=== PATIENT | female | born 1965 | race Two or more races ===

== ENCOUNTER 2022-04-16 03:00 | Emergency (ER) | payer OTHER ==
[~2022-04-16] VITALS: Ht 167.6 cm; Wt 66.2 kg
[2022-04-16] MEDS ORDERED: SYNTHROID88 MCG PO (03:09)
[2022-04-16] MEDS ORDERED: DICLOFENAC POTA50 MG PO (14:10)
[2022-04-16] MEDS ORDERED: ORPHENADRINE C100 MG PO (14:10)
== END 2022-04-16 14:36 ==
LOC: ER 03:00
DX: M54.50 Low back pain, unspecified (principal); M62.830 Muscle spasm of back; Z88.0 Allergy status to penicillin